=== PATIENT | female | born 1935 | race Caucasian/White ===

== ENCOUNTER 2020-10-29 03:40 | Observation (INO) | payer MEDICARE, OTHER ==
[~2020-10-29] VITALS: Ht 162.6 cm; Wt 66.7 kg
[~2020-10-29 03:40] MED LIST: ALBU1.25 IH; CITA10TA8 PO; INSU100I13 SQ; IPRA0.2S5 IH; LEXAPRO20 MG PO; OMEP40CA7 PO; PROM118S5 PO; SIMV40TA18 PO; TRAZ-120 PO; ZOLP5TAB PO
--- NOTE | 2020-10-29 04:15 | EKG ---
[address] [address] Test Date: 2020-10-29 Test Time: 03:49:31 Pat Name: CORY FU Department: Room: Gender: F Skid Adzer: : 1935 Requested By: MUKESH GREGORY Order Number: [id number] Reading MD: Anam Kelly Measurements Intervals [place] Rate: 89 P: [place]: QRS: -10 QRSD: 154 T: 145 QT: 422 QTc: 515 Interpretive Statements SINUS RHYTHM ATRIAL PREMATURE COMPLEXES LEFTWARD AXIS LEFT BUNDLE BRANCH BLOCK ABNORMAL ECG Electronically Signed On 10-29-2020 11:47:02 CDT by Anam Kelly
[2020-10-29 04:19] LABS: BASO # 0.1 x10^3/uL (0.0-0.2); BASO % 1 % (0-3); EOS # 0.3 x10^3/uL (0.0-0.7); EOS % 4 % (0-3); HEMOGLOBIN 10.5 g/dL (12.0-15.5); LYMPH # 1.1 x10^3/uL (1.0-4.8); LYMPH % 15 % (24-48); MEAN CORPUSCULAR HEMOGLOBIN 28 pg (25-35); MEAN CORPUSCULAR HGB CONC 32 g/dL (31-37); MEAN CORPUSCULAR VOLUME 88 fL (79-100); MONO # 0.5 x10^3/uL (0.0-1.1); MONO % 7 % (0-9); NEUT # 5.1 x10^3uL (1.8-7.7); NEUT % 73 % (31-73); PLATELET COUNT 263 x10^3/uL (140-400); RED BLOOD COUNT 3.74 x10^6/uL (3.50-5.40); RED CELL DISTRIBUTION WIDTH 20.6 % (11.5-14.5)
--- NOTE | 2020-10-29 04:27 | RAD ---
CT HEAD INDICATION: Reason: seizure activity / Spl. Instructions: / History: COMPARISON: 06/23/2013. Exposure: One or more of the following individualized dose reduction techniques were utilized for thi s examination: 1. Automated exposure control 2. Adjustment of the mA and/or kV according to patient size 3. Use of iterative reconstruction technique TECHNIQUE: 5 mm contiguous axial images were obtained from the skull base to the vertex in both bone and soft tissue algorithm. FINDINGS: Mild bilateral periventricular white matter hypodensities likely chronic small ischemic disease. No evidence of acute intracranial hemorrhage. No extra-axial fluid collections. No mass effect or midline shift. Ventricular size is appropriate. Basal cisterns are patent. No fractures identified.Waters-white differentiation is preserved.Globes and orbits are within normal l imits. Paranasal sinuses and mastoid air cells are clear. IMPRESSION: No acute intracranial findings. Electronically signed by: Abraham Melvin MD (10/29/2020 4:25 AM) [id number]
[2020-10-29] MEDS ORDERED: DEXTROSE 50% 25 GM / 50ML DISP.SYRIN. IV ONE ×2 (04:30→06:30)
--- NOTE | 2020-10-29 04:33 | PHYS DOC ---
Past History Past Medical History: A-Fib, Arthritis, Cancer, Depression, Diverticulitis, Diabetes, Hypertension, Other Past Surgical History: Cancer Surgery Additional Past Surgical Histo: right mastectomy Smoking: Non-smoker Alcohol Use: None Drug Use: None Adult General Chief Complaint Chief Complaint: SEIZURE HPI HPI Patient is a 85-year-old female with a past medical history significant for insulin-dependent diabetes and hypertension who presents from her alf via EMS for seizure-like activity and decreased responsiveness. Per facility staff she was given her nighttime medications including insulin glargine as usual and she went to bed. States that about 2:00 in the morning they were checking on her and she seemed to be shaking and hard to wake up. When EMS picked her up she did have a pulse, was breathing and have a GCS of 12. States they checked her blood sugar which was 55. On arrival patient's blood sugar was 55 in the ED and was given an amp of D50. Shortly after patient was awake, alert and at baseline able to tell full name and where she lived which is supposedly baseline for her. Patient denied any headache, changes in vision, chest pain, shortness of breath, abdominal pain, nausea, vomiting or dysuria. Denies any numbness/weakness/tingling. Denies any musculoskeletal or joint pain. Review of Systems Review of Systems Review of systems otherwise unremarkable except noted in HPI Current Medications Current Medications Current Medications Medications (Trade) Dose Ordered Sig/Lexi Start Time Stop Time Status Last Admin Dose Admin Dextrose (Dextrose 50%-Water Syringe) 25 gm 1X ONCE 10/29/20 04:30 10/29/20 04:31 10/29/20 03:59 25 GM Allergies Allergies Allergies Coded Allergies Type Severity Reaction Last Updated Verified oxycodone HCl Allergy Intermediate 10/29/20 Yes tramadol Allergy Intermediate 10/29/20 Yes Physical Exam Physical Exam Constitutional: Well developed, well nourished but fragile appearing non-toxic appearance. [] HENT: Normocephalic, atraumatic, oropharynx moist, no oral exudates, Eyes: PERRLA, EOMI, conjunctiva normal, no discharge. [] Neck: Normal range of motion, no tenderness, supple, no stridor. [] Cardiovascular:Heart rate regular rhythm, no murmur [] Lungs & Thorax: Bilateral breath sounds clear to auscultation [] Abdomen: Bowel sounds normal, soft, no tenderness, no masses, no pulsatile masses. [] Skin: Warm, dry, no erythema, no rash. [] Back: No tenderness, no obvious bruising, deformities or step-offs no CVA tenderness. [] Extremities: No tenderness, no cyanosis, no clubbing, ROM intact on all joints, no edema, no obvious deformities or injuries noted. [] Neurologic: Alert and oriented X 2, able to move all 4 extremities on command, able to sense touch in all 4 extremities and face, cranial nerves intact, no focal deficits noted. [] Psychologic: Affect normal, mood normal. [] Current Patient Data Vital Signs Vital Signs Date Time Temp Pulse Resp B/P (MAP) Pulse Ox O2 Delivery O2 Flow Rate FiO2 10/29/20 03:40 97.6 100 16 140/62 88 Room Air Lab Results Laboratory Tests Test 10/29/20 03:46 10/29/20 04:21 Glucose (Fingerstick) 55 mg/dL (70-99) L 176 mg/dL (70-99) H EKG EKG Rate of 89, QRS of 154, QTc of 515, no STEMI, however left bundle branch morphology [] Radiology/Procedures Radiology/Procedures [] Heart Score C/O Chest Pain: No Risk Factors: Risk Factors: DM, Current or recent (<one month) smoker, HTN, HLP, family history of CAD, obesity. Risk Scores: Risk Factors: DM, Current or recent (<one month) smoker, HTN, HLP, family history of CAD, obesity. Course & Med Decision Making Course & Med Decision Making Patient is an 85-year-old female who presents from her alf with decreased responsiveness and tremors/seizure-like activity Vital signs on arrival notable for tachycardia and blood sugar 55. Placed on the monitor with IV access established and given an amp of D50. Very quickly, patient became alert and oriented to person and place was pleasant and cooperative with a blood sugar of 167. Head CT with no acute intracranial findings. EKG noted above with left bundle branch block. Troponin not concerning. Laboratory analysis notable for anemia, and hypomagnesemia. Urinalysis notable for nitrite positive urinary tract infection. Magnesium replaced. Started on R ocephin. Discussed findings with patient and recommended admission for continued evaluation and treatment of her hyperglycemia, hypomagnesemia nitrite positive urinary tract infection. Given patient's condition either was given too much insulin or not enough to eat or combination of both. Dragon Disclaimer Dragon Disclaimer This electronic medical record was generated, in whole or in part, using a voice recognition dictation system. Departure Departure: Impression: Primary Impression: Hypoglycemia Additional Impressions: Tremors of nervous system Urinary tract infection Disposition: ADMITTED INPATIENT Admitting Physician: Jon Penaloza Condition: IMPROVED Referrals: TIMOTEO LAWRENCE MD (PCP) Problem Qualifiers MUKESH GREGORY MD Oct 29, 2020 04:33
[2020-10-29 04:37] LABS: ALBUMIN 2.9 g/dL (3.4-5.0); ALBUMIN/GLOBULIN RATIO 1.1 (1.0-1.7); CALCIUM 8.6 mg/dL (8.5-10.1); GFR 52.4; POTASSIUM 3.8 mmol/L (3.5-5.1); TOTAL BILIRUBIN 0.7 mg/dL (0.2-1.0); TOTAL PROTEIN 5.6 g/dL (6.4-8.2)
[2020-10-29 04:49] LABS: PLT ESTIMATE ADEQUATE (ADEQUATE)
[2020-10-29 04:50] LABS: ANISOCYTOSIS MOD
[2020-10-29 04:51] LABS: OVALOCYTES MOD
[2020-10-29 05:04] LABS: BILIRUBIN,URINE NEG (NEG); CLARITY,URINE HAZY; COLOR,URINE YELLOW; GLUCOSE,URINE NEG (NEG); NITRITE,URINE POS (NEG); RBC,URINE RARE /HPF (0-2); UROBILINOGEN,URINE 0.2 mg/dL (0.2 mg/dL)
[2020-10-29 05:05] LABS: BACTERIA,URINE MOD /HPF (0-FEW); SQUAMOUS EPITHELIAL CELL,UR OCC /LPF
[2020-10-29] MEDS ORDERED: cefTRIAXone SODIUM 1 GM VIAL ONE (05:37)
[2020-10-29] MEDS ORDERED: IV NORMAL SALINE 50ML 50 ML ONE (05:37)
[2020-10-29] MEDS ORDERED: MAGNESIUM SULFATE 2GM 50 ML IV ONE (06:00)
[2020-10-29] MEDS ORDERED: IV DEXTROSE 5% - 0.9 % NACL 1,000 ML IV ONE (06:00)
[2020-10-29] MEDS ORDERED: SERT-267 PO (07:27)
[2020-10-29] MEDS ORDERED: ASCO500T3 PO (07:27)
[2020-10-29] MEDS ORDERED: CHOL500021 PO (07:27)
[2020-10-29] MEDS ORDERED: ASPI-630 PO (07:27)
[2020-10-29] MEDS ORDERED: LANS30CA PO (07:27)
[2020-10-29] MEDS ORDERED: SUCR1TAB PO (07:27)
[2020-10-29] MEDS ORDERED: ATOR20TA58 PO (07:27)
[2020-10-29] MEDS ORDERED: METO-313 PO (07:27)
[2020-10-29] MEDS ORDERED: POLY17PO5 PO (07:27)
--- NOTE | 2020-10-29 08:06 | NUR ---
nursing note admission pt arrived via ems from ED to room 121. Pt admitted for UTI and hypoglycemia. report from DIAMOND cobian. Dr. Monroy at bedside. Pt arrived with no belongings.
[2020-10-29 08:08] VITALS: BP 136/73
[2020-10-29] MEDS ORDERED: SUCRALFATE 1 GM TABLET. PO SCH (10:30)
--- NOTE | 2020-10-29 10:54 | HP ---
ADMIT DATE: 10/29/2020 ATTENDING PHYSICIAN: Dr. Monroy. CHIEF COMPLAINT: Seizures. HISTORY OF PRESENT ILLNESS: The patient is an 85-year-old female with profound dementia, senior living resident. She is a DNR per advanced directive. EMS personnel were called and she had witnessed seizure-like activity and decreased mentation. In the ED, her blood sugar was found to be 55. She was given an amp of D50. She was not able to tell us person, place or time. A CT of the head is unremarkable. No recent trauma. She is admitted with altered mentation, seizures, and hypoglycemia. PAST MEDICAL HISTORY: Gleaned from the old chart. She has had a previous right mastectomy. She has paroxysmal atrial fibrillation, degenerative arthritis, breast cancer, depression, diverticulitis, diabetes, hypertension and generalized debilitation. CURRENT MEDICINES: Reviewed. ALLERGIES: SHE IS ALLERGIC TO OXYCODONE AND TRAMADOL. CURRENT MEDICATIONS: Include the following: She was scheduled to get regular insulin before each meal, albuterol, ascorbic acid, Lipitor, cholecalciferol, Lantus and regular insulin, Zoloft, Carafate and metoprolol. SOCIAL HISTORY: She is a nonsmoker, nondrinker. FAMILY HISTORY: Unobtainable. REVIEW OF SYSTEMS: Unobtainable. PHYSICAL EXAMINATION: GENERAL: When I saw her, this is an elderly, chronically demented female who is not aware of person, place or time. VITAL SIGNS: Her initial vital signs showed that she was afebrile. Blood pressure was 130/72 mmHg, pulse 92 and regular, temperature 96.8 degrees Fahrenheit, oxygen saturation 100% on 2 liters by nasal cannula. HEENT: Head is without trauma. Pupils are reactive. Sclerae nonicteric. Oropharynx clear. NECK: Supple, no bruits. LUNGS: Clear to auscultation. CARDIOVASCULAR: Showed distant heart tones. No gallops. Normal breast exam without any obvious lesions. The right breast is surgically removed. There are no axillary nodes. Showed regular heart tones. There is a harsh grade 3/6 systolic murmur extending from the end of S1 throughout systole and extending obscures the second heart sound. No murmurs accentuated into the carotids best heard at the right second sternal border. Peripheral pulses are palpable and full. ABDOMEN: Soft, obese, protuberant. No organomegaly. Bowel sounds are hypoactive. EXTREMITIES: Show trace edema. NEUROLOGIC FUNCTION: She is nonambulatory. She is not aware of place and person or time. PERTINENT LABORATORY STUDIES: Nonfasting blood sugar as noted. Hemoglobin 10.5 g/dL with a white count of 7000. Subsequent blood sugar showed an improvement of her glucose. ASSESSMENT: 1. An 85-year-old female, senior living resident with altered mentation due to hypoglycemia. 2. Type 2 diabetes. 3. Questionable witnessed seizures. 4. Profound dementia. 5. Type 2 diabetes mellitus. 6. History of breast cancer with a right mastectomy. 7. Anemia of chronic disease. 8. Incidental finding of a systolic murmur consistent with critical aortic stenosis. PLAN: 1. Admit to the inpatient unit. 2. Meds reviewed and simplified. 3. Insulin has been held. 4. Serial Accu-Cheks. 5. The patient remains a DNR per advanced directives. We will adjust her medicines. Monitor sugars and get her back to the senior living when stable. ALFONSO DR: Radha TID: [id number] CC: BURT BRYANT MD
[2020-10-29 11:52] VITALS: BP_SYST 167
[2020-10-29] MEDS: POLYETHYLENE GLYCOL 3350 17 GM PACKET. PO SCH (12:01)
[2020-10-29] MEDS: METOPROLOL TART IMMED RELEASE 25 MG TABLET. PO SCH ×2 (12:02→20:52)
[2020-10-29] MEDS: ASPIRIN CHEWABLE 81 MG TABLET. PO SCH (12:02)
[2020-10-29] MEDS: SERTRALINE 25 MG TABLET. PO SCH (12:04)
[2020-10-29 15:22] VITALS: BP 164/80
[2020-10-29] MEDS: SUCRALFATE 1 GM TABLET. PO SCH (15:55)
[2020-10-29] MEDS: IV NORMAL SALINE 1,000ML 1,000 ML IV SCH (16:37)
[2020-10-29 19:45] VITALS: BP 123/85
[2020-10-29 22:20] VITALS: BP 141/72
[2020-10-30] MEDS: IV NORMAL SALINE 1,000ML 1,000 ML IV SCH (05:35)
[2020-10-30 06:05] VITALS: BP 124/67
[2020-10-30] MEDS ORDERED: PANTOPRAZOLE 40 MG TABLET. PO SCH (07:30)
[2020-10-30] MEDS: ASPIRIN CHEWABLE 81 MG TABLET. PO SCH (08:16)
[2020-10-30] MEDS: POLYETHYLENE GLYCOL 3350 17 GM PACKET. PO SCH (08:17)
[2020-10-30] MEDS: SUCRALFATE 1 GM TABLET. PO SCH ×2 (08:17→11:30)
[2020-10-30] MEDS: SERTRALINE 25 MG TABLET. PO SCH (08:17)
[2020-10-30] MEDS: METOPROLOL TART IMMED RELEASE 25 MG TABLET. PO SCH (08:18)
--- NOTE | 2020-10-30 09:41 | DS ---
DATE OF DISCHARGE: 10/30/2020 ATTENDING PHYSICIAN: Dr. Monroy. FINAL DISCHARGE DIAGNOSES: 1. Altered mentation due to hypoglycemia, resolved. 2. Type 2 diabetes mellitus. 3. Questionable witnessed seizures. 4. Profound dementia. 5. Type 2 diabetes mellitus. 6. History of breast cancer with right mastectomy. 7. Anemia of chronic disease. 8. Incidental finding of systolic murmur consistent with aortic stenosis. HISTORY AND PHYSICAL: This is an 85-year-old female, resident of [facility]. She was admitted with altered mentation, questionable seizures and hypoglycemia with blood sugar of 50 mg/dL. She had been on insulin. PHYSICAL EXAMINATION: Please see the dictated note. PERTINENT LABORATORY AND X-RAY STUDIES: The obligatory CT of the head showed no acute strokes or bleeds. Hemoglobin on admission was 10.5 g/dL with a white count of 7000. Nonfasting blood sugar initially was 50, repeated was up to 83, 99, 122, and 101 mg/dL respectively. COURSE IN THE HOSPITAL: The patient was admitted. We stopped her insulin. We gave her gentle IV hydration. Diet was advanced. She turned around. By the next hospital day, she was feeling better and more alert. She still remains pleasantly confused. She was eating breakfast independently. Therefore, she was discharged back home. I discussed the case with her sons who are power of insurance defense attorney. She will return the [facility] facility with basically no changes except stopping her insulin. They should continue her albuterol as needed, ascorbic acid, aspirin, Lipitor, vitamin D3, Protonix, Lopressor 12.5 mg b.i.d., MiraLax, Zoloft, and Carafate; doses unchanged. For now, we stopped her Lantus insulin. She remains a DNR per advanced directive. Her prognosis is guarded. She was discharged then from our hospital in stable condition with explicit drug and followup care at the shelter. Total discharge time spent [address]: Radha TID: [id number] CC: TIMOTEO LAWRENCE MD
[2020-10-30 10:25] VITALS: BP 143/62
--- NOTE | 2020-10-30 14:04 | NUR ---
Pt resting comfortably throughout shift. Pt to be discharged to [facility] pending insurance clearance and transportation. Will continue to monitor. KENDALL RN
[2020-10-30 15:14] VITALS: BP 163/68
--- NOTE | 2020-10-30 16:22 | NUR ---
DISCHARGE NOTE PT discharged today by Dr. Monroy to [facility]. Report called to DIAMOND Rosas at facility. Pt escorted back to facility by EMS. No belongings with patient except shirt and pants pt had on at discharge. VSS and GCS 15 at discharge. KENDALL RN
== END 2020-10-30 16:00 ==
LOC: ER 03:40 → 1 SOUTH 06:01 → INTOOBSV 06:01
PROVIDERS: ADMIT Internal Medicine; ATTEND Internal Medicine
DX: E11.649 Type 2 diabetes mellitus with hypoglycemia without coma (principal); R56.9 Unspecified convulsions; N39.0 Urinary tract infection, site not specified; F03.90 Unspecified dementia, unspecified severity, without behavioral disturbance, psychotic disturbance, mood disturbance, and anxiety; D63.1 Anemia in chronic kidney disease; R01.1 Cardiac murmur, unspecified; I48.0 Paroxysmal atrial fibrillation; M19.90 Unspecified osteoarthritis, unspecified site; F32.9 Major depressive disorder, single episode, unspecified; K57.92 Diverticulitis of intestine, part unspecified, without perforation or abscess without bleeding; R53.81 Other malaise; I10 Essential (primary) hypertension; D63.8 Anemia in other chronic diseases classified elsewhere; I35.0 Nonrheumatic aortic (valve) stenosis; Z90.11 Acquired absence of right breast and nipple; Z85.3 Personal history of malignant neoplasm of breast; Z66 Do not resuscitate; Z79.4 Long term (current) use of insulin
CPT/HCPCS: 36415; 70450; 80053; 81001; 82947; 83735; 84484; 85025; 87077; 87086; 87186; 93005; 96361; 96365; 96366; 96367; 96375; 97161; 97166; 97530; 99285; G0378; J0696; J3475; J7030; J7042; 96368; 96376; G0379

== ENCOUNTER 2020-12-06 18:12 | Inpatient (IN) | payer MEDICARE ==
[~2020-12-06] VITALS: Ht 157.5 cm; Wt 60.0 kg
[~2020-12-06 18:12] MED LIST changes: +ASCO500T3 PO; +ASPI-630 PO; +ATOR20TA58 PO; +CHOL500021 PO; +LANS30CA PO; +METO-313 PO; +POLY17PO5 PO; +SERT-267 PO; +SUCR1TAB PO
[2020-12-06] MEDS ORDERED: IV NORMAL SALINE 1,000ML 1,000 ML IV ONE (19:00)
[2020-12-06 19:05] LABS: BASO % 0 % (0-3); EOS % 0 % (0-3); HEMATOCRIT 46.9 % (36.0-47.0); LYMPH # 1.4 x10^3/uL (1.0-4.8); LYMPH % 11 % (24-48); MEAN CORPUSCULAR HEMOGLOBIN 29 pg (25-35); MEAN CORPUSCULAR HGB CONC 30 g/dL (31-37); MEAN CORPUSCULAR VOLUME 97 fL (79-100); MONO # 0.7 x10^3/uL (0.0-1.1); MONO % 5 % (0-9); NEUT # 10.7 x10^3uL (1.8-7.7); NEUT % 84 % (31-73); PLATELET COUNT 228 x10^3/uL (140-400); RED BLOOD COUNT 4.84 x10^6/uL (3.50-5.40); RED CELL DISTRIBUTION WIDTH 16.7 % (11.5-14.5); WHITE BLOOD COUNT 12.9 x10^3/uL (4.0-11.0)
--- NOTE | 2020-12-06 19:05 | EKG ---
[address] [address] Test Date: 2020-12-06 Test Time: 18:26:29 Pat Name: CORY FU Department: Room: Gender: F Pin[employer] Wheel Truer: KEMAR : 1935 Requested By: LA MCCORMACK Order Number: [id number] Reading MD: Measurements Intervals [place] Rate: 123 P: -80 NC: 102 QRS: -18 QRSD: 124 T: 154 QT: 338 QTc: 490 Interpretive Statements SUPRAVENTRICULAR RHYTHM LEFTWARD AXIS LVH WITH REPOLARIZATION ABNORMALITY CONSIDER RIGHT VENTRICULAR HYPERTROPHY ABNORMAL ECG RI6.02 No previous ECG available for comparison
[2020-12-06 19:09] LABS: CALCIUM 9.2 mg/dL (8.5-10.1); CREATININE 2.7 mg/dL (0.6-1.0); GFR 16.7; POTASSIUM 4.6 mmol/L (3.5-5.1)
[2020-12-06 19:11] LABS: ALBUMIN 3.4 g/dL (3.4-5.0); ALBUMIN/GLOBULIN RATIO 0.9 (1.0-1.7); PHOSPHORUS 5.1 mg/dL (2.6-4.7); TOTAL BILIRUBIN 0.5 mg/dL (0.2-1.0); TOTAL PROTEIN 7.3 g/dL (6.4-8.2)
--- NOTE | 2020-12-06 20:02 | RAD ---
Exam: Chest one view INDICATION: Altered mental status TECHNIQUE: Frontal view of the chest Comparisons: None FINDINGS: The cardiomediastinal silhouette and pulmonary vessels are within normal limits. The lung and pleural spaces are clear. IMPRESSION: No acute cardiopulmonary process. Electronically signed by: Puja Webster MD (12/06/2020 8:00 PM) MARIA E
--- NOTE | 2020-12-06 20:52 | RAD ---
CT Head W/O Contrast: History: Reason: altered mental status / Spl. Instructions: / History: Comparison: October 29, 2020 Axial images were obtained without contrast. There is marked diffuse atrophy. There is no mass effect, extraaxial fluid collections or hydrocepha pranay. There is no gross bleed. Moderate periventricular white matter hypoattenuation is seen. There is no focal loss of frank-white matter distinction to suggest acute ischemia, i.e. stroke. Impression: No acute findings. RS Compliance Statement: One or more of the following individualized dose reduction techniques were utilized for this examinat ion: 1. Automated exposure control 2. Adjustment of the mA and/or kV according to patient size 3. Use of iterative reconstruction technique Electronically signed by: Greg Juarez III, MD (12/06/2020 8:49 PM) [facility]
[2020-12-06] MEDS ORDERED: INSULIN REGULAR 100 UNIT/ML 3ML VIAL. IV ONE (21:00)
[2020-12-06] MEDS ORDERED: HEPARIN for IV BOLUS 10,000 UNIT/10 ML VIAL. IV ONE (21:00)
[2020-12-06] MEDS ORDERED: DEXTROSE 50% 25 GM / 50ML DISP.SYRIN. IV PRN (21:00)
[2020-12-06] MEDS ORDERED: HEPARIN for IV BOLUS 10,000 UNIT/10 ML VIAL. IV PRN (21:00)
[2020-12-06] MEDS ORDERED: INSULIN REGULAR VIAL 100 UNIT in IV NORMAL SALINE 100ML 100 ML IV PRN (21:00)
[2020-12-06] MEDS ORDERED: HEPARIN 25,000UTS/250ML PREMIX 250 ML IV PRN (21:00)
[2020-12-06] MEDS ORDERED: ANTI-COAG MONITOR BY PHARMACY. MC PRN (21:15)
[2020-12-06] MEDS ORDERED: IV NORMAL SALINE 100ML 100 ML ONE (21:19)
[2020-12-06] MEDS ORDERED: ASPIRIN RECTAL 300 MG SUPP. PR ONE (21:30)
--- NOTE | 2020-12-06 22:00 | PHYS DOC ---
Past History Past Medical History: A-Fib, Arthritis, Cancer, Depression, Diverticulitis, Diabetes, Hypertension, Other (LA MCCORMACK APRN) Past Surgical History: No Surgical History Additional Past Surgical Histo: right mastectomy (LA MCCORMACK APRN) Smoking: Non-smoker Alcohol Use: None Drug Use: None (LA MCCORMACK APRN) Adult General Chief Complaint Chief Complaint: HYPERGLYCEMIA HPI HPI Patient is a 85-year-old female who presents to the emergency department via EMS from [facility] for hyperglycemic episode at residence. Limited HPI, patient nonverbal, report received from EMS upholstery technician. EMS upholstery technician states his blood glucose monitor read high in route. After reviewing residential form sent with patient for transfer, patient has history of fracture of left femur, type 2 diabetes, cerebrovascular disease, dementia, essential hypertension, A. fib, major depressive disorder, polyosteoarthritis, hyperlipidemia, muscle weakness, lack of coordination, repeated falls. (LA MCCORMACK APRN) Review of Systems Review of Systems Constitutional: Denies fever or chills [] Eyes: Denies change in visual acuity, redness, or eye pain [] HENT: Denies nasal congestion or sore throat [] Respiratory: Denies cough or shortness of breath [] Cardiovascular: No additional information not addressed in HPI [] GI: Denies abdominal pain, nausea, vomiting, bloody stools or diarrhea [] : Denies dysuria or hematuria [] Musculoskeletal: Denies back pain or joint pain [] Integument: Denies rash or skin lesions [] Neurologic: Denies headache, focal weakness or sensory changes [] Endocrine: Denies polyuria or polydipsia [] All other systems were reviewed and found to be within normal limits, except as documented in this note. (LA MCCORMACK APRN) Current Medications Current Medications Current Medications Medications (Trade) Dose Ordered Sig/Lexi Start Time Stop Time Status Last Admin Dose Admin Dextrose (Dextrose 50%-Water Syringe) 12.5 gm PRN Q15MIN PRN 12/06/20 21:00 Heparin Sodium (Porcine) (Heparin Sodium) 1,350 unit PRN Q6HRS PRN 12/06/20 21:00 Heparin Sodium/ Dextrose 250 ml @ 0 mls/hr CONT PRN 12/06/20 21:00 Info (Anti-Coagulation Monitoring By Pharmacy) 1 each PRN DAILY PRN 12/06/20 21:15 Insulin Human Regular (HumuLIN R VIAL) 10 unit 1X ONCE 12/06/20 21:00 12/06/20 21:01 DC 12/06/20 20:50 10 UNIT Insulin Human Regular 100 unit/ Sodium Chloride 101 ml @ 0 mls/hr CONT PRN 12/06/20 21:00 Sodium Chloride 100 ml @ As Directed STK-MED ONCE 12/06/20 21:19 12/06/20 21:20 DC (LA MCCORMACK APRN) Allergies Allergies Allergies Coded Allergies Type Severity Reaction Last Updated Verified oxycodone HCl Allergy Intermediate 10/29/20 Yes tramadol Allergy Intermediate 10/29/20 Yes (LA MCCORMACK APRN) Physical Exam Physical Exam Constitutional: Patient tented, nonverbal, eyes open, does not respond to verbal stimuli. Does not appear toxic. HENT: Normocephalic, atraumatic, bilateral external ears normal, sticky, oral mucosa sticky, no oral exudates, nose normal. Eyes: PERRLA, conjunctiva normal, no discharge appreciated. Neck: Normal range of motion, no tenderness, supple, no stridor. Cardiovascular:Heart rate regular rhythm, no murmur Lungs & Thorax: Bilateral breath sounds clear to auscultation however limited related to patient mental status state, does not deep breathe when asked. Abdomen: Bowel sounds normal, soft, no tenderness, no masses, no pulsatile masses. Skin: Warm, dry, no erythema, no rash. Back: No tenderness, no CVA tenderness. Extremities: No tenderness, no cyanosis, no clubbing, no edema, range of motion unable to assess related to patient's mental status Neurologic: Patient's eyes open, does not respond to verbal stimuli or questions. Psychologic: Unable to assess related to patient's physical presentation. (LA MCCORMACK APRN) Current Patient Data Vital Signs Vital Signs Date Time Temp Pulse Resp B/P (MAP) Pulse Ox O2 Delivery O2 Flow Rate FiO2 12/06/20 18:43 98.9 123 24 105/78 92 Room Air Lab Results Laboratory Tests Test 12/06/20 18:30 White Blood Count 12.9 x10^3/uL (4.0-11.0) H Red Blood Count 4.84 x10^6/uL (3.50-5.40) Hemoglobin 14.0 g/dL (12.0-15.5) Hematocrit 46.9 % (36.0-47.0) Mean Corpuscular Volume 97 fL (79-100) Mean Corpuscular Hemoglobin 29 pg (25-35) Mean Corpuscular Hemoglobin Concent 30 g/dL (31-37) L Red Cell Distribution Width 16.7 % (11.5-14.5) H Platelet Count 228 x10^3/uL (140-400) Neutrophils (%) (Auto) 84 % (31-73) H Lymphocytes (%) (Auto) 11 % (24-48) L Monocytes (%) (Auto) 5 % (0-9) Eosinophils (%) (Auto) 0 % (0-3) Basophils (%) (Auto) 0 % (0-3) Neutrophils # (Auto) 10.7 x10^3uL (1.8-7.7) H Lymphocytes # (Auto) 1.4 x10^3/uL (1.0-4.8) Monocytes # (Auto) 0.7 x10^3/uL (0.0-1.1) Eosinophils # (Auto) 0.0 x10^3/uL (0.0-0.7) Basophils # (Auto) 0.0 x10^3/uL (0.0-0.2) Sodium Level 155 mmol/L (136-145) H Potassium Level 4.6 mmol/L (3.5-5.1) Chloride Level 117 mmol/L (98-107) H Carbon Dioxide Level 21 mmol/L (21-32) Anion Gap 17 (6-14) H Blood Urea Nitrogen 64 mg/dL (7-20) H Creatinine 2.7 mg/dL (0.6-1.0) H Estimated GFR (Cockcroft-Gault) 16.7 BUN/Creatinine Ratio 24 (6-20) H Glucose Level 794 mg/dL (70-99) *H Calcium Level 9.2 mg/dL (8.5-10.1) Phosphorus Level 5.1 mg/dL (2.6-4.7) H Magnesium Level 3.0 mg/dL (1.8-2.4) H Total Bilirubin 0.5 mg/dL (0.2-1.0) Aspartate Amino Transferase (AST) 20 U/L (15-37) Alanine Aminotransferase (ALT) 21 U/L (14-59) Alkaline Phosphatase 194 U/L (46-116) H Creatine Kinase 71 U/L (26-192) Troponin I Quantitative 0.225 ng/mL (0-0.055) H Total Protein 7.3 g/dL (6.4-8.2) Albumin 3.4 g/dL (3.4-5.0) Albumin/Globulin Ratio 0.9 (1.0-1.7) L Lipase 156 U/L (73-393) Acetone Level Neg (NEG) (LA MCCORMACK APRN) EKG EKG EKG performed at 1826, heart rate 123 shows a supraventricular rhythm otherwise no ectopy, ND interval 0.102, QTc interval 0.490, no acute STEMI, no ACS, no definite ischemia appreciated however EKG does have right ventricular hypertrophy with LVH and look upward axis, EKG interpreted by ED attending physician Dr. Reyes. (LA MCCORMACK APRN) Radiology/Procedures Radiology/Procedures PATIENT: CORY FU ACCOUNT: [id number] : 1935 LOCATION: ER AGE: 85 SEX: F EXAM STATUS: REG ER ORD. PHYSICIAN: LA MCCORMACK APRN REASON: altered mental status PROCEDURE: CT HEAD WO CONTRAST CT Head W/O Contrast: History: Reason: altered mental status / Spl. Instructions: / History: Comparison: October 29, 2020 Axial images were obtained without contrast. There is marked diffuse atrophy. There is no mass effect, extraaxial fluid collections or hydrocephalus. There is no gross bleed. Moderate periventricular white matter hypoattenuation is seen. There is no focal loss of frank-white matter distinction to suggest acute ischemia, i.e. stroke. Impression: No acute findings. PQRS Compliance Statement: One or more of the following individualized dose reduction techniques were utilized for this examination: 1. Automated exposure control 2. Adjustment of the mA and/or kV according to patient size 3. Use of iterative reconstruction technique PROCEDURE: CHEST AP ONLY Exam: Chest one view INDICATION: Altered mental status TECHNIQUE: Frontal view of the chest Comparisons: None FINDINGS: The cardiomediastinal silhouette and pulmonary vessels are within normal limits. The lung and pleural spaces are clear. IMPRESSION: No acute cardiopulmonary process. Electronically signed by: Puja Webster MD (12/06/2020 8:00 PM) [facility] (LA MCCORMACK APRN) Heart Score C/O Chest Pain: No Risk Factors: Risk Factors: DM, Current or recent (<one month) smoker, HTN, HLP, family history of CAD, obesity. Risk Scores: Risk Factors: DM, Current or recent (<one month) smoker, HTN, HLP, family his tory of CAD, obesity. (LA MCCORMACK APRN) Course & Med Decision Making Course & Med Decision Making Pertinent Labs and Imaging studies reviewed. (See chart for details) 85-year-old female, vital signs reviewed, presents to the emergency department concerning high blood sugar. A DKA work-up was initiated, however patient's heart rate was elevated, a cardiorespiratory work-up was added in addition. Patient troponin elevated at 0.225, consulted with associate relations specialist Dr. Enamorado who reviewed current EKG and compared to EKG from 06/23/2013, related to patient's age and history, did not recommend Radio Presenter intervention, recommended heparin drip protocol and aspirin if CT head negative for acute bleed. Stated would see patient in morning for evaluation, admit to hospitalist. Patient had multiple lab concerns, called and discussed ED presentation and work-up of patient with [facility] inpatient hospitalist physician Dr. Penaloza who agreed patient admission to ICU is warranted with the information given by me, patient's CT head was negative for acute hemorrhage, associate relations specialist r ecommendations initiated, patient will be admitted to ICU, insulin drip initiated, Dr. Draper has assumed patient care, patient awaiting ICU bed assignment from [facility] health fur dressing supervisor. (LA MCCORMACK APRN) Dragon Disclaimer Dragon Disclaimer This electronic medical record was generated, in whole or in part, using a voice recognition dictation system. (LA MCCORMACK APRN) Departure Departure: Impression: Primary Impression: Altered mental status Additional Impressions: Hyperglycemia NSTEMI (non-ST elevated myocardial infarction) Abnormal laboratory test Hypernatremia Acute kidney injury Disposition: ADMITTED INPATIENT Admitting Physician: Jon Penaloza (Admit to ICU to Dr. Penaloza.) (LA MCCORMACK APRN) Condition: GUARDED Referrals: TIMOTEO LAWRENCE MD (PCP) Attending Signature Attending Signature I have participated in the care of this patient and I have reviewed and agree with all pertinent clinical information above including history, exam, and recommendations. (LANG RAMOS MD) Problem Qualifiers Primary Impression: Altered mental status Altered mental status type: unspecified Qualified Codes: R41.82 - Altered mental status, unspecified LA MCCORMACK APRN Dec 06, 2020 22:00 LANG RAMOS MD Dec 09, 2020 14:04
[2020-12-06 22:21] LABS: BILIRUBIN,URINE SMALL (NEG); CLARITY,URINE HAZY; COLOR,URINE YELLOW; GLUCOSE,URINE >=1000 mg/dL (NEG)
[2020-12-06 22:22] LABS: BACTERIA,URINE MANY /HPF (0-FEW); NITRITE,URINE NEG (NEG); SQUAMOUS EPITHELIAL CELL,UR FEW /LPF; UROBILINOGEN,URINE 0.2 mg/dL (0.2 mg/dL); WBC,URINE >40 /HPF (0-4)
[2020-12-06 22:24] LABS: YEAST,URINE PRESENT /HPF
[2020-12-06 23:10] VITALS: BP 93/61
[2020-12-07] VITALS (21 sets, daily range): BP systolic 82–145; BP diastolic 48–103
[2020-12-07] MEDS ORDERED: IV NORMAL SALINE 1,000ML 1,000 ML IV SCH
[2020-12-07] MEDS ORDERED: METO25TA4 PO (02:15)
[2020-12-07] MEDS ORDERED: ACET325T21 PO (02:16)
[2020-12-07] MEDS ORDERED: PANT40TA3 PO (02:16)
[2020-12-07 05:04] LABS: CALCIUM 9.3 mg/dL (8.5-10.1)
[2020-12-07 05:05] LABS: CREATININE 2.6 mg/dL (0.6-1.0); GFR 17.4
[2020-12-07 05:09] LABS: POTASSIUM 2.9 mmol/L (3.5-5.1)
[2020-12-07] MEDS ORDERED: IV RINGERS SOLUTION,LACTATED 1,000 ML IV ONE (05:30)
[2020-12-07] MEDS: POTASSIUM CHLORIDE 10MEQ 100 ML IV SCH ×4 (06:31→10:51)
[2020-12-07] MEDS: IV DEXTROSE 5% 1,000 ML IV SCH ×4 (06:31→23:12)
[2020-12-07 08:40] LABS: CREATININE 2.4 mg/dL (0.6-1.0); GFR 19.1; POTASSIUM 3.6 mmol/L (3.5-5.1)
[2020-12-07] MEDS ORDERED: DEXTROSE 50% 25 GM / 50ML DISP.SYRIN. IV PRN (13:00)
--- NOTE | 2020-12-07 13:22 | EKG ---
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
[2020-12-07 13:23] LABS: CALCIUM 8.8 mg/dL (8.5-10.1); CREATININE 2.2 mg/dL (0.6-1.0); GFR 21.1; POTASSIUM 3.5 mmol/L (3.5-5.1)
--- NOTE | 2020-12-07 13:24 | HP ---
ADMIT DATE: 12/06/2020 HISTORY OF PRESENT ILLNESS: The patient is an 85-year-old female patient, [place] [facility] [place] brought to the Emergency Room via EMS from [facility] for hyperglycemic episode at the residence. The history is very limited. The EMS paramedics stated that her blood glucose monitor read high en route. After reviewing [facility] form with the patient for transfer, the patient has a history of fracture of left femur, type 2 diabetes mellitus, cerebrovascular accident, dementia, essential hypertension, atrial fibrillation, major depressive disorder. She was extensively investigated in the Emergency Room with lab work and imaging studies. Her lab work showed that her white cell count was high at 12,900. Her chemistry showed that her serum sodium was high at 155, and her glucose initially was almost 800 mg/dL, creatinine was 2.7. Her first set of cardiac enzymes showed troponin to be 0.225, second was 0.306. Her prothrombin time, INR and APTT were normal. Urinalysis showed that the patient has a small amount of protein, large amount of glucose, trace of ketones, large amount of blood, negative for nitrite. There was a small amount of leukocyte esterase, 5-10 rbc's, more than 40 wbc's and many bacteria. Her acetone level was negative, and the patient was given a liter of normal saline and 10 units of regular insulin. She was also started on another liter of lactated Ringer and started on heparin drip and consultation with the geothermal hvac technician and admitted to continue with diagnosis of nonketotic hyperglycemia, non-ST segment elevation myocardial infarction, acute kidney injury and hypernatremia. She was started on heparin drip and insulin drip together, so was switched to D5W at 150 mL per hour to replenish her large water deficit, and she was started also on IV potassium as her potassium was low. The patient was obtunded and does not give any useful information. PAST MEDICAL HISTORY: Significant for fracture of the left neck to femur, status post closed reduction. Type 2 diabetes mellitus, cerebrovascular accident, dementia without behavioral disturbances, hypertension, paroxysmal atrial fibrillation, major depression, polyosteoarthritis, hyperlipidemia, generalized muscle weakness, lack of coordination and repeated falls. PAST SURGICAL HISTORY: Significant for open reduction internal fixation of the left femoral neck fracture. ALLERGIES: SHE IS ALLERGIC TO TRAMADOL. MEDICATIONS: The patient is currently on following medications: She is on metoprolol tartrate 25 mg twice a day, aspirin 81 mg once a day, acetaminophen 650 mg every 4 hours, sertraline 25 mg at bedtime, polyethylene glycol 17 grams daily, sucralfate 1 gram 4 times a day and Protonix 40 mg once a day. FAMILY HISTORY: Noncontributory. SOCIAL HISTORY: She is a resident at the [facility]. She does not smoke, drink alcohol or recreational drugs. REVIEW OF SYSTEMS: Unobtainable. PHYSICAL EXAMINATION: GENERAL: On arrival to the Emergency Room, there was no pallor, jaundice, cyanosis or thyromegaly. No jugular venous distention. No limb edema. VITAL SIGNS: Her heart rate was 123, blood pressure is 105/78, temperature 98.9, respiratory rate 24, and oxygen saturation was 92%. HEAD, EYES, EARS, NOSE, AND THROAT: Normocephalic, atraumatic. NECK: Supple. HEART: Showed normal first and second heart sounds, no gallop or murmur. CHEST: Clear to auscultation. No crepitation or rhonchi. ABDOMEN: Distended, soft, nontender. NEUROLOGIC: She was grossly demented, but without any obvious lateralizing sign. LABORATORY DATA: Her lab work on admission showed a white cell count 12,900, hemoglobin 14, hematocrit 47, MCV 97 and platelet count 228,000 with automated differential showed 84% polymorphs, 11% lymphocytes and 5% monocytes. Her prothrombin time was 10.8, INR of 1 and APTT was 21. Her serum sodium was 155, potassium 4.6, chloride 117, bicarbonate 21, anion gap of 17, BUN of 64, creatinine was 2.7. Estimated GFR was 16.7. Her blood sugar was high at 794, calcium was 9.2, phosphorus 5, magnesium was 3. Total bilirubin, AST, ALT, alkaline phosphatase were normal. Total protein 7.3, albumin 3.4 and serum lipase was 158. His first set of cardiac enzymes showed troponin to be 0.225, the second one was 0.306. ASSESSMENT AND PLAN: The patient was admitted to the ICU, started on insulin drip and also D5W to replenish her with her fluid intake. I will start her also on IV Rocephin for possibly urinary tract infection and monitor her labs closely. Also, we will replenish her potassium intravenously. DENISE DR: Matt TID: [id number]
--- NOTE | 2020-12-07 14:51 | PDOC2 ---
CONSULT DOS: DATE: 12/07/20 TIME: 14:45 Reason for Consult: Elevated troponin Referring Physician: Dr. Penaloza Chief Complaint Decreased level of consciousness Source: Chart review Problem List Problems Medical Problems: (1) Abnormal laboratory test Status: Acute (2) Acute kidney injury Status: Acute (3) Altered mental status Status: Acute (4) Hyperglycemia Status: Acute (5) Hypernatremia Status: Acute (6) NSTEMI (non-ST elevated myocardial infarction) Status: Acute History of Present Illness The patient is an 85-year-old female [facility] patient who rib who was reported by her [facility] last evening to be having decreased level of consciousness and increasing weakness. Initial evaluations included a glucose level reportedly of approximately 800. She was transported to the emergency room and lab testing there was significant for a glucose of 794, creatinine of 2.7 and EKG that showed a sinus rhythm with diffuse nonspecific ST-T wave changes. The patient was treated for her severely elevated glucose overnight and is significantly improved this morning. Her peak troponin has been 0.553. Creatinine is improved from 2.7-2.2. CT head scan showed no acute findings. Chest x-ray showed no acute infiltrates. EKG showed a sinus rhythm with nonspecific ST-T wave changes. The patient remains minimally responsive. Cardiovascular: AFIB, CHF, HTN CENTRAL NERVOUS SYSTEM: CVA Renal/: Chronic renal insuff Endocrine: Diabetes Past Surgical History: Other (Mastectomy) Family History: Other (Not available at this time.) Smoke: No ALCOHOL: none Current Medications Current Medications Sodium Chloride 1,000 ml @ 1,000 mls/hr 1X ONCE IV Last administered on 12/06/20at 19:39; Start 12/06/20 at 19:00; Stop 12/06/20 at 19:59; Status DC Insulin Human Regular (HumuLIN R VIAL) 10 unit 1X ONCE IV Last administered on 12/06/20at 20:50; Start 12/06/20 at 21:00; Stop 12/06/20 at 21:01; Status DC Insulin Human Regular 100 unit/ Sodium Chloride 101 ml @ 0 mls/hr CONT PRN IV SEE I/O RECORD Last administered on 12/06/20at 23:10; Start 12/06/20 at 21:00 Dextrose (Dextrose 50%-Water Syringe) 12.5 gm PRN Q15MIN PRN IV LOW BLOOD SUGAR; Start 12/06/20 at 21:00 Aspirin (Aspirin Rectal Supp) 300 mg 1X ONCE ND Last administered on 12/06/20at 21:30; Start 12/06/20 at 21:30; Stop 12/06/20 at 21:31; Status DC Heparin Sodium/ Dextrose 250 ml @ 0 mls/hr CONT PRN IV SEE I/O RECORD Last administered on 12/06/20at 23:10; Start 12/06/20 at 21:00 Heparin Sodium (Porcine) (Heparin Sodium) 3,250 unit 1X ONCE IV Last administered on 12/06/20at 23:16; Start 12/06/20 at 21:00; Stop 12/06/20 at 21:12; Status DC Heparin Sodium (Porcine) (Heparin Sodium) 1,350 unit PRN Q6HRS PRN IV FOR PTT LESS THAN 24 SECONDS; Start 12/06/20 at 21:00 Info (Anti-Coagulation Monitoring By Pharmacy) 1 each PRN DAILY PRN MC PER PROTOCOL; Start 12/06/20 at 21:15 Sodium Chloride 100 ml @ As Directed STK-MED ONCE .ROUTE ; Start 12/06/20 at 21:19; Stop 12/06/20 at 21:20; Status DC Sodium Chloride 1,000 ml @ 75 mls/hr [id number] IV Last administered on 12/06/20at 23:45; Start 12/07/20 at 00:00; Stop 12/07/20 at 05:27; Status DC Lactated Ringer's 1,000 ml @ 1,000 mls/hr 1X ONCE IV Last administered on 12/07/20at 05:27; Start 12/07/20 at 05:30; Stop 12/07/20 at 06:29; Status DC Dextrose 1,000 ml @ 150 mls/hr Q6H40M IV Last administered on 12/07/20at 06:31; Start 12/07/20 at 06:30 Potassium Chloride 100 ml @ 100 mls/hr Q1H IV Last administered on 12/07/20at 10:51; Start 12/07/20 at 06:00; Stop 12/07/20 at 09:59; Status DC Ceftriaxone Sodium 1 gm/ Sodium Chloride 50 ml @ 100 mls/hr Q24H IV Last administered on 12/07/20at 13:56; Start 12/07/20 at 12:00 Insulin Human Lispro (HumaLOG) 0-7 UNITS TIDWMEALS SQ ; Start 12/07/20 at 17:00 Dextrose (Dextrose 50%-Water Syringe) 12.5 gm PRN Q15MIN PRN IV SEE COMMENTS; Start 12/07/20 at 13:00 Active Scripts Active Reported Protonix (Pantoprazole Sodium) 40 Mg Tablet.dr 40 Mg PO DAILY Acetaminophen 325 Mg Tablet 650 Mg PO PRN Q4HRS PRN Metoprolol Tartrate 25 Mg Tablet 25 Mg PO BID Sucralfate 1 Gm Tablet 1 Tab PO QIDACHS Sertraline Hcl 25 Mg Tablet 25 Mg PO HS Miralax (Polyethylene Glycol 3350) 17 Gm Powd.pack 1 Packet PO DAILY 2 Days dissolve in water Aspirin 81 Mg Tab.chew 81 Mg PO DAILY Allergies: Coded Allergies: oxycodone HCl (Verified Allergy, Intermediate, 10/29/20) tramadol (Verified Allergy, Intermediate, 10/29/20) Review of System Decreased responsiveness. Neurological: YES: Other (Decreased level of consciousness.) General: mild distress HEENT: Atraumatic Lungs: Other (Mildly decreased breath sounds) Heart: Regular rate Abdomen: Normal bowel sounds VITALS Vital Signs Date Time Temp Pulse Resp B/P (MAP) Pulse Ox O2 Delivery O2 Flow Rate FiO2 12/07/20 13:08 99 19 120/69 (86) 97 12/07/20 06:00 Room Air 12/06/20 23:10 98.3 Labs Laboratory Tests Test 12/06/20 18:30 12/06/20 21:40 12/06/20 21:50 12/06/20 23:01 White Blood Count 12.9 x10^3/uL (4.0-11.0) Red Blood Count 4.84 x10^6/uL (3.50-5.40) Hemoglobin 14.0 g/dL (12.0-15.5) Hematocrit 46.9 % (36.0-47.0) Mean Corpuscular Volume 97 fL (79-100) Mean Corpuscular Hemoglobin 29 pg (25-35) Mean Corpuscular Hemoglobin Concent 30 g/dL (31-37) Red Cell Distribution Width 16.7 % (11.5-14.5) Platelet Count 228 x10^3/uL (140-400) Neutrophils (%) (Auto) 84 % (31-73) Lymphocytes (%) (Auto) 11 % (24-48) Monocytes (%) (Auto) 5 % (0-9) Eosinophils (%) (Auto) 0 % (0-3) Basophils (%) (Auto) 0 % (0-3) Neutrophils # (Auto) 10.7 x10^3uL (1.8-7.7) Lymphocytes # (Auto) 1.4 x10^3/uL (1.0-4.8) Monocytes # (Auto) 0.7 x10^3/uL (0.0-1.1) Eosinophils # (Auto) 0.0 x10^3/uL (0.0-0.7) Basophils # (Auto) 0.0 x10^3/uL (0.0-0.2) Sodium Level 155 mmol/L (136-145) Potassium Level 4.6 mmol/L (3.5-5.1) Chloride Level 117 mmol/L (98-107) Carbon Dioxide Level 21 mmol/L (21-32) Anion Gap 17 (6-14) Blood Urea Nitrogen 64 mg/dL (7-20) Creatinine 2.7 mg/dL (0.6-1.0) Estimated GFR (Cockcroft-Gault) 16.7 BUN/Creatinine Ratio 24 (6-20) Glucose Level 794 mg/dL (70-99) Calcium Level 9.2 mg/dL (8.5-10.1) Phosphorus Level 5.1 mg/dL (2.6-4.7) Magnesium Level 3.0 mg/dL (1.8-2.4) Total Bilirubin 0.5 mg/dL (0.2-1.0) Aspartate Amino Transf (AST/SGOT) 20 U/L (15-37) Alanine Aminotransferase (ALT/SGPT) 21 U/L (14-59) Alkaline Phosphatase 194 U/L (46-116) Creatine Kinase 71 U/L (26-192) Troponin I Quantitative 0.225 ng/mL (0-0.055) 0.306 ng/mL (0-0.055) Total Protein 7.3 g/dL (6.4-8.2) Albumin 3.4 g/dL (3.4-5.0) Albumin/Globulin Ratio 0.9 (1.0-1.7) Lipase 156 U/L (73-393) Acetone Level Neg (NEG) Urine Collection Type U cath Urine Color Yellow Urine Clarity Hazy Urine pH 5.0 Urine Specific [place] 1.025 Urine Protein 30 mg/dl (NEG-TRACE) Urine Glucose (UA) >=1000 mg/dL (NEG) Urine Ketones (Stick) 15 mg/dL (NEG) Urine Blood Large (NEG) Urine Nitrite Neg (NEG) Urine Bilirubin Small (NEG) Urine Urobilinogen Dipstick 0.2 mg/dL (0.2 mg/dL) Urine Leukocyte Esterase Small (NEG) Urine RBC 6-10 /HPF (0-2) Urine WBC >40 /HPF (0-4) Urine Squamous Epithelial Cells Few /LPF Urine Bacteria Many /HPF (0-FEW) Urine Yeast Present /HPF Prothrombin Time 10.8 SEC (9.4-11.4) Prothromb Time International Ratio 1.0 (0.9-1.1) Activated Partial Thromboplast Time 22 SEC (23-33) Glucose (Fingerstick) 520 mg/dL (70-99) Test 12/07/20 00:09 12/07/20 00:55 12/07/20 01:08 12/07/20 02:09 Glucose (Fingerstick) 458 mg/dL (70-99) 384 mg/dL (70-99) 273 mg/dL (70-99) Troponin I Quantitative 0.553 ng/mL (0-0.055) Test 12/07/20 03:06 12/07/20 04:06 12/07/20 04:10 12/07/20 05:10 Glucose (Fingerstick) 169 mg/dL (70-99) 100 mg/dL (70-99) 107 mg/dL (70-99) Activated Partial Thromboplast Time 51 SEC (23-33) Sodium Level 165 mmol/L (136-145) Potassium Level 2.9 mmol/L (3.5-5.1) Chloride Level 129 mmol/L (98-107) Carbon Dioxide Level 22 mmol/L (21-32) Anion Gap 14 (6-14) Blood Urea Nitrogen 70 mg/dL (7-20) Creatinine 2.6 mg/dL (0.6-1.0) Estimated GFR (Cockcroft-Gault) 17.4 Glucose Level 102 mg/dL (70-99) Calcium Level 9.3 mg/dL (8.5-10.1) Test 12/07/20 06:04 12/07/20 07:02 12/07/20 08:02 12/07/20 08:20 Glucose (Fingerstick) 100 mg/dL (70-99) 142 mg/dL (70-99) 189 mg/dL (70-99) Sodium Level 160 mmol/L (136-145) Potassium Level 3.6 mmol/L (3.5-5.1) Chloride Level 125 mmol/L (98-107) Carbon Dioxide Level 25 mmol/L (21-32) Anion Gap 10 (6-14) Blood Urea Nitrogen 65 mg/dL (7-20) Creatinine 2.4 mg/dL (0.6-1.0) Estimated GFR (Cockcroft-Gault) 19.1 Glucose Level 202 mg/dL (70-99) Calcium Level 9.0 mg/dL (8.5-10.1) Test 12/07/20 09:06 12/07/20 10:10 12/07/20 11:50 12/07/20 12:38 Glucose (Fingerstick) 201 mg/dL (70-99) 192 mg/dL (70-99) 130 mg/dL (70-99) Sodium Level 158 mmol/L (136-145) Potassium Level 3.5 mmol/L (3.5-5.1) Chloride Level 123 mmol/L (98-107) Carbon Dioxide Level 22 mmol/L (21-32) Anion Gap 13 (6-14) Blood Urea Nitrogen 61 mg/dL (7-20) Creatinine 2.2 mg/dL (0.6-1.0) Estimated GFR (Cockcroft-Gault) 21.1 Glucose Level 118 mg/dL (70-99) Calcium Level 8.8 mg/dL (8.5-10.1) Test 12/07/20 12:56 Glucose (Fingerstick) 98 mg/dL (70-99) Images CT scan of the head showed no acute findings. Chest x-ray shows no acute changes. Assessment/Plan 1. Decreased level of consciousness. Initial glucose level of 794. Patient's glucose has been treated and is significantly improved this morning. CT head scan shows no acute findings. 2. Hypertension. Patient's blood pressure is under improved control today. 3. Mildly elevated troponin at 0.553. No acute ST segment changes on EKG. We'll continue present treatments and up obtain old records. 4. Apparently chronic kidney disease. Creatinine initially at 2.7 which is now decreased to 2.2. We'll continue to monitor. BEBE CRANE MD Dec 07, 2020 14:51
[2020-12-07 16:36] LABS: CALCIUM 8.7 mg/dL (8.5-10.1); CREATININE 2.1 mg/dL (0.6-1.0); GFR 22.3; POTASSIUM 3.7 mmol/L (3.5-5.1)
[2020-12-07] MEDS: INSULIN LISPRO 300 UNITS/3 ML VIAL. SQ SCH (16:52)
[2020-12-07 20:51] LABS: CALCIUM 8.4 mg/dL (8.5-10.1); GFR 23.6; POTASSIUM 3.6 mmol/L (3.5-5.1)
--- NOTE | 2020-12-07 21:34 | PN ---
DATE: 12/07/2020 SUBJECTIVE: The patient is resting flat in bed, in no apparent distress. She is definitely more awake, alert, opens eyes, tracks and mouth some words. PHYSICAL EXAMINATION: GENERAL: When I examined her, she looked well and was clearly in no apparent respiratory distress. VITAL SIGNS: Her heart rate was 108, blood pressure was 97/59, temperature was 97.5, respiratory rate 24, and oxygen saturation was 95% on room air. HEAD, EYES, EARS, NOSE, AND THROAT: Normocephalic, atraumatic. NECK: Supple. HEART: Showed normal first and second heart sounds. No gallop or murmur. CHEST: Clear to auscultation. No crepitation or rhonchi. ABDOMEN: Scaphoid, soft, nontender. NEUROLOGIC: She was grossly intact. LABORATORY DATA: Her lab work this morning showed a serum sodium 165, potassium 3.9, chloride 129, bicarbonate 22, anion gap of 14, glucose was 102 and calcium was 9.3. ASSESSMENT: This is an 85-year-old female patient who was admitted with: 1. Nonketotic hyperosmolar hyperglycemia. 2. Acute kidney injury. 3. Hypernatremia. 4. Has multiple other medical problems including: A. Hypertension. B. Hyperlipidemia. C. Type 2 diabetes. D. Paroxysmal atrial fibrillation. PLAN: Continue with D5W with a low dose of insulin drip. Continue to replenish her potassium. I will add Rocephin for urinary tract infection and once her serum sodium is normalized and kidney function also improves, we will discuss further options of management. EMILY DR: Matt TID: [id number]
[2020-12-08] VITALS (17 sets, daily range): BP systolic 104–156; BP diastolic 60–89
[2020-12-08 06:49] LABS: HEMATOCRIT 37.6 % (36.0-47.0); HEMOGLOBIN 11.7 g/dL (12.0-15.5); RED BLOOD COUNT 3.97 x10^6/uL (3.50-5.40); RED CELL DISTRIBUTION WIDTH 15.4 % (11.5-14.5); WHITE BLOOD COUNT 9.4 x10^3/uL (4.0-11.0)
[2020-12-08 07:06] LABS: CALCIUM 8.1 mg/dL (8.5-10.1); CREATININE 1.8 mg/dL (0.6-1.0); GFR 26.6; POTASSIUM 3.8 mmol/L (3.5-5.1)
[2020-12-08] MEDS: INSULIN LISPRO 300 UNITS/3 ML VIAL. SQ SCH ×3 (08:00→17:26)
[2020-12-08] MEDS ORDERED: INSULIN LISPRO 300 UNITS/3 ML VIAL. SQ ONE (09:00)
--- NOTE | 2020-12-08 09:17 | PDOC ---
CARDIO Progress Notes Date & Time Date of Service DATE: 12/08/20 TIME: 09:12 Time of Evaluation 09:12 Subjective Notes confused. no complaints expressed Vitals Vitals Vital Signs Date Time Temp Pulse Resp B/P (MAP) Pulse Ox O2 Delivery O2 Flow Rate FiO2 12/08/20 08:24 104 14 146/83 (104) 97 12/08/20 06:00 Room Air 12/08/20 05:00 98.0 Weight Weight [ ] Input and Output I.O. Intake and Output 12/08/20 07:00 Intake Total 2400 ml Output Total 650 ml Balance 1750 ml Intake Oral 50 ml IV Total 2350 ml Output Urine Total 650 ml Laboratory Labs Laboratory Tests Test 12/06/20 18:30 12/06/20 21:40 12/06/20 21:50 12/06/20 23:01 White Blood Count 12.9 x10^3/uL (4.0-11.0) Red Blood Count 4.84 x10^6/uL (3.50-5.40) Hemoglobin 14.0 g/dL (12.0-15.5) Hematocrit 46.9 % (36.0-47.0) Mean Corpuscular Volume 97 fL (79-100) Mean Corpuscular Hemoglobin 29 pg (25-35) Mean Corpuscular Hemoglobin Concent 30 g/dL (31-37) Red Cell Distribution Width 16.7 % (11.5-14.5) Platelet Count 228 x10^3/uL (140-400) Neutrophils (%) (Auto) 84 % (31-73) Lymphocytes (%) (Auto) 11 % (24-48) Monocytes (%) (Auto) 5 % (0-9) Eosinophils (%) (Auto) 0 % (0-3) Basophils (%) (Auto) 0 % (0-3) Neutrophils # (Auto) 10.7 x10^3uL (1.8-7.7) Lymphocytes # (Auto) 1.4 x10^3/uL (1.0-4.8) Monocytes # (Auto) 0.7 x10^3/uL (0.0-1.1) Eosinophils # (Auto) 0.0 x10^3/uL (0.0-0.7) Basophils # (Auto) 0.0 x10^3/uL (0.0-0.2) Sodium Level 155 mmol/L (136-145) Potassium Level 4.6 mmol/L (3.5-5.1) Chloride Level 117 mmol/L (98-107) Carbon Dioxide Level 21 mmol/L (21-32) Anion Gap 17 (6-14) Blood Urea Nitrogen 64 mg/dL (7-20) Creatinine 2.7 mg/dL (0.6-1.0) Estimated GFR (Cockcroft-Gault) 16.7 BUN/Creatinine Ratio 24 (6-20) Glucose Level 794 mg/dL (70-99) Calcium Level 9.2 mg/dL (8.5-10.1) Phosphorus Level 5.1 mg/dL (2.6-4.7) Magnesium Level 3.0 mg/dL (1.8-2.4) Total Bilirubin 0.5 mg/dL (0.2-1.0) Aspartate Amino Transf (AST/SGOT) 20 U/L (15-37) Alanine Aminotransferase (ALT/SGPT) 21 U/L (14-59) Alkaline Phosphatase 194 U/L (46-116) Creatine Kinase 71 U/L (26-192) Troponin I Quantitative 0.225 ng/mL (0-0.055) 0.306 ng/mL (0-0.055) Total Protein 7.3 g/dL (6.4-8.2) Albumin 3.4 g/dL (3.4-5.0) Albumin/Globulin Ratio 0.9 (1.0-1.7) Lipase 156 U/L (73-393) Acetone Level Neg (NEG) Urine Collection Type U cath Urine Color Yellow Urine Clarity Hazy Urine pH 5.0 Urine Specific [place] 1.025 Urine Protein 30 mg/dl (NEG-TRACE) Urine Glucose (UA) >=1000 mg/dL (NEG) Urine Ketones (Stick) 15 mg/dL (NEG) Urine Blood Large (NEG) Urine Nitrite Neg (NEG) Urine Bilirubin Small (NEG) Urine Urobilinogen Dipstick 0.2 mg/dL (0.2 mg/dL) Urine Leukocyte Esterase Small (NEG) Urine RBC 6-10 /HPF (0-2) Urine WBC >40 /HPF (0-4) Urine Squamous Epithelial Cells Few /LPF Urine Bacteria Many /HPF (0-FEW) Urine Yeast Present /HPF Prothrombin Time 10.8 SEC (9.4-11.4) Prothromb Time International Ratio 1.0 (0.9-1.1) Activated Partial Thromboplast Time 22 SEC (23-33) Glucose (Fingerstick) 520 mg/dL (70-99) Test 12/07/20 00:09 12/07/20 00:55 12/07/20 01:08 12/07/20 02:09 Glucose (Fingerstick) 458 mg/dL (70-99) 384 mg/dL (70-99) 273 mg/dL (70-99) Troponin I Quantitative 0.553 ng/mL (0-0.055) Test 12/07/20 03:06 12/07/20 04:06 12/07/20 04:10 12/07/20 05:10 Glucose (Fingerstick) 169 mg/dL (70-99) 100 mg/dL (70-99) 107 mg/dL (70-99) Activated Partial Thromboplast Time 51 SEC (23-33) Sodium Level 165 mmol/L (136-145) Potassium Level 2.9 mmol/L (3.5-5.1) Chloride Level 129 mmol/L (98-107) Carbon Dioxide Level 22 mmol/L (21-32) Anion Gap 14 (6-14) Blood Urea Nitrogen 70 mg/dL (7-20) Creatinine 2.6 mg/dL (0.6-1.0) Estimated GFR (Cockcroft-Gault) 17.4 Glucose Level 102 mg/dL (70-99) Calcium Level 9.3 mg/dL (8.5-10.1) Test 12/07/20 06:04 12/07/20 07:02 12/07/20 08:02 12/07/20 08:20 Glucose (Fingerstick) 100 mg/dL (70-99) 142 mg/dL (70-99) 189 mg/dL (70-99) Sodium Level 160 mmol/L (136-145) Potassium Level 3.6 mmol/L (3.5-5.1) Chloride Level 125 mmol/L (98-107) Carbon Dioxide Level 25 mmol/L (21-32) Anion Gap 10 (6-14) Blood Urea Nitrogen 65 mg/dL (7-20) Creatinine 2.4 mg/dL (0.6-1.0) Estimated GFR (Cockcroft-Gault) 19.1 Glucose Level 202 mg/dL (70-99) Calcium Level 9.0 mg/dL (8.5-10.1) Test 12/07/20 09:06 12/07/20 10:10 12/07/20 11:00 12/07/20 11:50 Glucose (Fingerstick) 201 mg/dL (70-99) 192 mg/dL (70-99) 130 mg/dL (70-99) Coronavirus (COVID-19)(PCR) Negative (NEGATIVE) Test 12/07/20 12:38 12/07/20 12:56 12/07/20 16:05 12/07/20 16:44 Sodium Level 158 mmol/L (136-145) 155 mmol/L (136-145) Potassium Level 3.5 mmol/L (3.5-5.1) 3.7 mmol/L (3.5-5.1) Chloride Level 123 mmol/L (98-107) 122 mmol/L (98-107) Carbon Dioxide Level 22 mmol/L (21-32) 20 mmol/L (21-32) Anion Gap 13 (6-14) 13 (6-14) Blood Urea Nitrogen 61 mg/dL (7-20) 60 mg/dL (7-20) Creatinine 2.2 mg/dL (0.6-1.0) 2.1 mg/dL (0.6-1.0) Estimated GFR (Cockcroft-Gault) 21.1 22.3 Glucose Level 118 mg/dL (70-99) 174 mg/dL (70-99) Calcium Level 8.8 mg/dL (8.5-10.1) 8.7 mg/dL (8.5-10.1) Glucose (Fingerstick) 98 mg/dL (70-99) 198 mg/dL (70-99) Test 12/07/20 20:15 12/07/20 20:41 12/08/20 06:10 12/08/20 07:56 Activated Partial Thromboplast Time 35 SEC (23-33) 42 SEC (23-33) Sodium Level 154 mmol/L (136-145) 147 mmol/L (136-145) Potassium Level 3.6 mmol/L (3.5-5.1) 3.8 mmol/L (3.5-5.1) Chloride Level 120 mmol/L (98-107) 115 mmol/L (98-107) Carbon Dioxide Level 22 mmol/L (21-32) 21 mmol/L (21-32) Anion Gap 12 (6-14) 11 (6-14) Blood Urea Nitrogen 60 mg/dL (7-20) 51 mg/dL (7-20) Creatinine 2.0 mg/dL (0.6-1.0) 1.8 mg/dL (0.6-1.0) Estimated GFR (Cockcroft-Gault) 23.6 26.6 Glucose Level 278 mg/dL (70-99) 487 mg/dL (70-99) Calcium Level 8.4 mg/dL (8.5-10.1) 8.1 mg/dL (8.5-10.1) Glucose (Fingerstick) 265 mg/dL (70-99) 452 mg/dL (70-99) White Blood Count 9.4 x10^3/uL (4.0-11.0) Red Blood Count 3.97 x10^6/uL (3.50-5.40) Hemoglobin 11.7 g/dL (12.0-15.5) Hematocrit 37.6 % (36.0-47.0) Mean Corpuscular Volume 95 fL (79-100) Mean Corpuscular Hemoglobin 29 pg (25-35) Mean Corpuscular Hemoglobin Concent 31 g/dL (31-37) Red Cell Distribution Width 15.4 % (11.5-14.5) Platelet Count 133 x10^3/uL (140-400) Microbiology Micro Microbiology 12/06/20 Urine Culture - Final, Complete 12/06/20 Blood Culture - Preliminary, Resulted NO GROWTH AFTER 1 DAY... Physical Exams HEENT: Neck Supple W Full Motion Lungs: Other (diminished bases) Heart: RRR (SR/ST) Abdomen: Soft N/T Extremities: No Edema Neurology: alert, confused Assessment Assessment 1. Metabolic encephalopathy; CT head without acute findings 2. DKA 3. Diabetes, II; as per IM 4. RANDAL on CKD, hypernatremia; improved 5. Mild troponin elevation; highest 0.5. Most probably type II, demand ischemia in setting of above. Echo 10/13 with preserved LV systolic function. on heparin gtt 6. PAFIB; presently SR/ST 7. Hypertension 8. Hyperlipidemia 9. Dementia 10. Chronic LBBB Recommendations Discontinue heparin gtt Resume metoprolol for rate control. ASA therapy Poor candidate for OAC given high fall risk Conservative measures from a CV standpoint ROMARIO HAN APRN Dec 08, 2020 09:17
[2020-12-08] MEDS: METOPROLOL TARTRATE 5 MG/5 ML VIAL. IV SCH ×3 (10:56→23:30)
[2020-12-09 03:42] VITALS: BP 124/75
[2020-12-09] MEDS: METOPROLOL TARTRATE 5 MG/5 ML VIAL. IV SCH ×4 (05:24→23:42)
--- NOTE | 2020-12-09 05:49 | PN ---
SUBJECTIVE: The patient is resting, slightly popped up in bed, in no apparent distress. She is more awake, alert, although is pleasantly confused. She is apparently eating and drinking; however, she is ____ her pureed diet. PHYSICAL EXAMINATION: GENERAL: When I examined her this morning, she looked pale. No jaundice, cyanosis, or thyromegaly. No jugular venous distention. No lower limb edema. VITAL SIGNS: Her heart rate was 94, blood pressure was 104/62, temperature was 98, respiratory rate was 13, and oxygen saturation was 97% on room air. HEAD, EYES, EARS, NOSE, AND THROAT: Normocephalic, atraumatic. NECK: Supple. HEART: Showed normal first and second heart sounds. No gallop, rub, or murmur. CHEST: Clear to auscultation. No crepitation or rhonchi. ABDOMEN: Distended, soft, nontender. NEUROLOGIC: She is demented without any obvious lateralizing sign. Her intake and output are incompletely recorded. LABORATORY DATA: Her white cell count is down to 9400, hemoglobin 11.7, hematocrit 37, MCV 95, and platelet count of 133,000. Her chemistry showed a serum sodium is down to 147, potassium 3.8, chloride 115, anion gap of 11, BUN 51, creatinine 1.8. Estimated GFR was 26 mL per minute. Her glucose 487. Calcium was 8.1. ASSESSMENT: 1. Nonketotic hyperosmolar hyperglycemia, resolving. 2. Acute kidney injury, improving. Her kidney function came down from 2.7 to 1.8. 3. Hypernatremia, resolving. Serum sodium came down from 165 to 147. 4. She has multiple other medical problems including: A. Hypertension. B. Hyperlipidemia. C. Type 2 diabetes mellitus. D. Paroxysmal atrial fibrillation. PLAN: To push water as that she has severe water deficit. We will repeat the labs tomorrow and discuss with the family their goals of care. FRANKIE/DARON/MICHELLE DR: FRANKIE/stella TID: [id number]
[2020-12-09 07:01] LABS: HEMATOCRIT 34.9 % (36.0-47.0); RED BLOOD COUNT 3.76 x10^6/uL (3.50-5.40); RED CELL DISTRIBUTION WIDTH 15.3 % (11.5-14.5); WHITE BLOOD COUNT 6.4 x10^3/uL (4.0-11.0)
[2020-12-09 07:14] LABS: ALBUMIN 2.3 g/dL (3.4-5.0); ALBUMIN/GLOBULIN RATIO 0.8 (1.0-1.7); CALCIUM 8.1 mg/dL (8.5-10.1); CREATININE 1.4 mg/dL (0.6-1.0); GFR 35.6; POTASSIUM 3.7 mmol/L (3.5-5.1); TOTAL BILIRUBIN 0.5 mg/dL (0.2-1.0); TOTAL PROTEIN 5.1 g/dL (6.4-8.2)
[2020-12-09] MEDS: INSULIN LISPRO 300 UNITS/3 ML VIAL. SQ SCH ×3 (08:12→17:00)
--- NOTE | 2020-12-09 08:52 | PDOC ---
CARDIO Progress Notes Date & Time Date of Service DATE: 12/09/20 TIME: 08:50 Time of Evaluation 08:50 Subjective Notes confused Vitals Vitals Vital Signs Date Time Temp Pulse Resp B/P (MAP) Pulse Ox O2 Delivery O2 Flow Rate FiO2 12/09/20 05:24 104 124/74 12/09/20 03:42 16 98 Room Air 12/08/20 20:00 98.2 Weight Weight [ ] Input and Output I.O. Intake and Output 12/09/20 07:00 Intake Total 450 ml Output Total 500 ml Balance -50 ml Intake Oral 400 ml IV Total 50 ml Output Urine Total 500 ml Laboratory Labs Laboratory Tests Test 12/07/20 09:06 12/07/20 10:10 12/07/20 11:00 12/07/20 11:50 Glucose (Fingerstick) 201 mg/dL (70-99) 192 mg/dL (70-99) 130 mg/dL (70-99) Coronavirus (COVID-19)(PCR) Negative (NEGATIVE) Test 12/07/20 12:38 12/07/20 12:56 12/07/20 16:05 12/07/20 16:44 Sodium Level 158 mmol/L (136-145) 155 mmol/L (136-145) Potassium Level 3.5 mmol/L (3.5-5.1) 3.7 mmol/L (3.5-5.1) Chloride Level 123 mmol/L (98-107) 122 mmol/L (98-107) Carbon Dioxide Level 22 mmol/L (21-32) 20 mmol/L (21-32) Anion Gap 13 (6-14) 13 (6-14) Blood Urea Nitrogen 61 mg/dL (7-20) 60 mg/dL (7-20) Creatinine 2.2 mg/dL (0.6-1.0) 2.1 mg/dL (0.6-1.0) Estimated GFR (Cockcroft-Gault) 21.1 22.3 Glucose Level 118 mg/dL (70-99) 174 mg/dL (70-99) Calcium Level 8.8 mg/dL (8.5-10.1) 8.7 mg/dL (8.5-10.1) Glucose (Fingerstick) 98 mg/dL (70-99) 198 mg/dL (70-99) Test 8/15/21 20:15 12/07/20 20:41 12/08/20 06:10 12/08/20 07:56 Activated Partial Thromboplast Time 35 SEC (23-33) 42 SEC (23-33) Sodium Level 154 mmol/L (136-145) 147 mmol/L (136-145) Potassium Level 3.6 mmol/L (3.5-5.1) 3.8 mmol/L (3.5-5.1) Chloride Level 120 mmol/L (98-107) 115 mmol/L (98-107) Carbon Dioxide Level 22 mmol/L (21-32) 21 mmol/L (21-32) Anion Gap 12 (6-14) 11 (6-14) Blood Urea Nitrogen 60 mg/dL (7-20) 51 mg/dL (7-20) Creatinine 2.0 mg/dL (0.6-1.0) 1.8 mg/dL (0.6-1.0) Estimated GFR (Cockcroft-Gault) 23.6 26.6 Glucose Level 278 mg/dL (70-99) 487 mg/dL (70-99) Calcium Level 8.4 mg/dL (8.5-10.1) 8.1 mg/dL (8.5-10.1) Glucose (Fingerstick) 265 mg/dL (70-99) 452 mg/dL (70-99) White Blood Count 9.4 x10^3/uL (4.0-11.0) Red Blood Count 3.97 x10^6/uL (3.50-5.40) Hemoglobin 11.7 g/dL (12.0-15.5) Hematocrit 37.6 % (36.0-47.0) Mean Corpuscular Volume 95 fL (79-100) Mean Corpuscular Hemoglobin 29 pg (25-35) Mean Corpuscular Hemoglobin Concent 31 g/dL (31-37) Red Cell Distribution Width 15.4 % (11.5-14.5) Platelet Count 133 x10^3/uL (140-400) Test 12/08/20 16:53 12/09/20 06:45 12/09/20 07:30 Glucose (Fingerstick) 196 mg/dL (70-99) 281 mg/dL (70-99) White Blood Count 6.4 x10^3/uL (4.0-11.0) Red Blood Count 3.76 x10^6/uL (3.50-5.40) Hemoglobin 11.0 g/dL (12.0-15.5) Hematocrit 34.9 % (36.0-47.0) Mean Corpuscular Volume 93 fL (79-100) Mean Corpuscular Hemoglobin 29 pg (25-35) Mean Corpuscular Hemoglobin Concent 32 g/dL (31-37) Red Cell Distribution Width 15.3 % (11.5-14.5) Platelet Count 124 x10^3/uL (140-400) Sodium Level 151 mmol/L (136-145) Potassium Level 3.7 mmol/L (3.5-5.1) Chloride Level 117 mmol/L (98-107) Carbon Dioxide Level 22 mmol/L (21-32) Anion Gap 12 (6-14) Blood Urea Nitrogen 35 mg/dL (7-20) Creatinine 1.4 mg/dL (0.6-1.0) Estimated GFR (Cockcroft-Gault) 35.6 BUN/Creatinine Ratio 25 (6-20) Glucose Level 314 mg/dL (70-99) Calcium Level 8.1 mg/dL (8.5-10.1) Total Bilirubin 0.5 mg/dL (0.2-1.0) Aspartate Amino Transf (AST/SGOT) 27 U/L (15-37) Alanine Aminotransferase (ALT/SGPT) 19 U/L (14-59) Alkaline Phosphatase 130 U/L (46-116) Total Protein 5.1 g/dL (6.4-8.2) Albumin 2.3 g/dL (3.4-5.0) Albumin/Globulin Ratio 0.8 (1.0-1.7) Microbiology Micro Microbiology 12/06/20 Urine Culture - Final, Complete 12/06/20 Blood Culture - Preliminary, Resulted NO GROWTH AFTER 2 DAYS... Physical Exams HEENT: Neck Supple W Full Motion Lungs: Other (diminished bases) Heart: RRR (SR) Abdomen: Soft N/T Extremities: No Edema Neurology: alert, confused Assessment Assessment 1. Metabolic encephalopathy; CT head without acute findings 2. DKA; resolved 3. Diabetes, II; as per IM 4. RANDAL on CKD, hypernatremia; improved 5. Mild troponin elevation; highest 0.5. Most probably type II, demand ischemia in setting of above. Echo 10/13 with preserved LV systolic function. 6. PAFIB; presently SR/ST 7. Hypertension; controlled 8. Hyperlipidemia 9. Dementia 10. Chronic LBBB Recommendations Continue metoprolol for rate control. Convert to oral when able to take PO ASA therapy Poor candidate for OAC given high fall risk Conservative measures from a CV standpoint ROMARIO HAN APRN Dec 09, 2020 08:52
[2020-12-09 09:20] VITALS: BP 142/85
[2020-12-09 13:27] VITALS: BP 133/73
[2020-12-09 16:57] VITALS: BP 108/56
[2020-12-09 21:44] VITALS: BP 132/83
[2020-12-09 23:28] VITALS: BP 142/81
--- NOTE | 2020-12-10 00:06 | PN ---
DATE: 12/09/2020 SUBJECTIVE: The patient is resting, slightly popped up in bed, sleeping comfortably. She is arousable. She is pleasantly confused. Unfortunately, as we stopped IV fluid, her serum sodium has started rising again and discussion was held between our nephrology social worker and the family and I actually spoke with one of her sons yesterday regarding further management as her oral intake is extremely poor and we recommended hospice care. PHYSICAL EXAMINATION: GENERAL: When I examined her this afternoon, she looked well and was clearly in no apparent respiratory distress. She is pale, not jaundice, cyanosed or thyromegaly. No jugular venous distention. Mild bilateral lower limb edema. VITAL SIGNS: Her heart rate was 71, blood pressure was 133/73, temperature was 98.2, respiratory rate was 14 and oxygen saturation was 98% on room air. HEAD, EYES, EARS, NOSE, AND THROAT: Normocephalic, atraumatic. NECK: Supple. HEART: Showed normal first and second heart sounds, no gallop or murmur. CHEST: Clear to auscultation, no crepitation or rhonchi. ABDOMEN: Distended, soft, nontender. NEUROLOGIC: She is demented, but without any obvious lateralizing sign. All her cranial nerves intact. She moves extremities without difficulty, although she is mostly bedbound. Her intake was 2400, output was 650. LABORATORY DATA: This morning showed a white cell count of 6400, hemoglobin 11, hematocrit 35, MCV 93, and platelet count of 124,000. Serum sodium was 151, potassium 3.7, chloride 117, bicarbonate 22, anion gap of 12, BUN 35, creatinine 1.4. Estimated GFR was 36 mL per minute. Her glucose was 114, calcium was 8.1. Total bilirubin, AST, ALT were normal. Alkaline phosphatase slightly elevated. Total protein 5.1, albumin was 2.3. ASSESSMENT: 1. Nonketotic hyperosmolar hyperglycemia, resolving. 2. Acute kidney injury, improving. Her kidney function has improved with the creatinine came down from 2.7 to 1.4. 3. Hypernatremia rising again. Her serum sodium up to 151 as her oral intake is very poor and unreliable. 4. She has multiple other medical problems including hypertension, hyperlipidemia, type 2 diabetes mellitus, paroxysmal atrial fibrillation. PLAN: To encourage water intake. Await the decision from family regarding discharge to correction versus home with hospice. ELIZABETH DR: Matt TID: [id number]
[2020-12-10 05:39] VITALS: BP 164/97
[2020-12-10] MEDS: METOPROLOL TARTRATE 5 MG/5 ML VIAL. IV SCH ×2 (05:40→12:08)
[2020-12-10] MEDS ORDERED: ASPIRIN ENTERIC COATED 81 MG TABLET.DR. PO SCH (08:00)
[2020-12-10 11:28] VITALS: BP 133/65
[2020-12-10 14:47] VITALS: BP 152/99
--- NOTE | 2020-12-10 20:19 | DS ---
DATE OF DISCHARGE: 12/10/2020 ATTENDING PHYSICIAN: Dr. Penaloza. FINAL DISCHARGE DIAGNOSES: 1. Profound dehydration. 2. Hyperosmolar nonketotic hyperglycemia. 3. Diabetes mellitus. 4. Acute kidney injury. 5. Hypernatremia due to free water deficit. 6. Essential hypertension. 7. Type 2 diabetes. 8. Paroxysmal atrial fibrillation. 9. Profound dementia with debilitation. HISTORY AND PHYSICAL: The patient is an 85-year-old female who has multiple medical issues. She was brought in with dehydration, altered mentation and profound weakness. Serum sodium was up. She was not getting any oral intake. PHYSICAL EXAMINATION: Please see the dictated note. PERTINENT LABORATORY AND X-RAY STUDIES: Admission hemoglobin was 14.0 g/dL with hemoconcentrated with hydration, it came down to 11.0 gram, white count 12,900. Chemistry panel were drawn. Sodium 151 mEq, creatinine was 2.7, came down to 1.4 mg/dL. Nonfasting blood sugar 408. Troponins were elevated due to a stress demand ischemia and decreased clearance, it was 0.553. COURSE IN HOSPITAL: The patient was admitted. She was started on gentle IV hydration with serial chemistry. Cardiology consultation was obtained due to the patient's dementia and her poor prognosis and they elected to treat her conservatively. Family was a first reluctant, but eventually agreed to end of life care. Arrangements were made for hospice to take care of the patient at her own home. She was discharged then with no further medications. We stopped her insulin and other medications in anticipation of a quiet demise. Therefore, she was discharged home with prognosis to be terminal, comfort measures with hospice care. MELISSA DR: Radha TID: [id number] CC: TIMOTEO LAWRENCE MD
[2020-12-10] MEDS ORDERED: LACTOBACILLUS RHAMNOSUS GG 1 CAPSULE. PO SCH (21:00)
== END 2020-12-10 16:55 | disposition hospice, home (50) | DRG 637 ==
LOC: ER 18:12 → ICU 21:23 → 1 SOUTH 12-09 18:32
PROVIDERS: ADMIT Internal Medicine; ATTEND Internal Medicine
DX: E11.10 Type 2 diabetes mellitus with ketoacidosis without coma (principal); G93.41 Metabolic encephalopathy; N17.9 Acute kidney failure, unspecified; E87.0 Hyperosmolality and hypernatremia; I13.0 Hypertensive heart and chronic kidney disease with heart failure and stage 1 through stage 4 chronic kidney disease, or unspecified chronic kidney disease; N39.0 Urinary tract infection, site not specified; E11.00 Type 2 diabetes mellitus with hyperosmolarity without nonketotic hyperglycemic-hyperosmolar coma (NKHHC); F32.9 Major depressive disorder, single episode, unspecified; E78.5 Hyperlipidemia, unspecified; N18.9 Chronic kidney disease, unspecified; E11.22 Type 2 diabetes mellitus with diabetic chronic kidney disease; F03.90 Unspecified dementia, unspecified severity, without behavioral disturbance, psychotic disturbance, mood disturbance, and anxiety; Z51.5 Encounter for palliative care; Z88.6 Allergy status to analgesic agent; I50.9 Heart failure, unspecified; I48.0 Paroxysmal atrial fibrillation; E86.0 Dehydration; I44.7 Left bundle-branch block, unspecified; M15.9 Polyosteoarthritis, unspecified; Z90.11 Acquired absence of right breast and nipple; Z86.73 Personal history of transient ischemic attack (TIA), and cerebral infarction without residual deficits; Z20.822 Contact with and (suspected) exposure to COVID-19
CPT/HCPCS: 36415; 70450; 71045; 80048; 80053; 81001; 82010; 82550; 82947; 83690; 83735; 84100; 84484; 85025; 85027; 85610; 85730; 87040; 87086; 93005; 96361; 96374; J0696; J1644; J1815; J3480; J3490; J7120; U0003; 99285-25; J7030